=== PATIENT | female | born 1955 ===

== ENCOUNTER 2023-09-17 05:06 | Day surgery (SDC) | payer OTHER ==
[2023-09-09 09:02] LABS: URINE APPEARANCE Cloudy; URINE BILIRRUBIN Negative (NEGATIVE); URINE BLOOD Negative; URINE COLOR Yellow; URINE GLUCOSE Negative (NEGATIVE); URINE LEUKOCYTE Moderate; URINE NITRATE Negative; URINE PROTEIN Trace (NEGATIVE)
[2023-09-09 09:03] LABS: URINE BACTERIA 4058.3 uL (0.0-1933); URINE EPITHELIAL CELLS 54.4 uL (0.0-38.8); URINE RBC 10.5 uL (0.0-20.8); URINE WBC 79.3 uL (0.0-23.2)
[2023-09-09 09:07] LABS: HEMATOCRIT 45.2 % (36.0-45.00); HEMOGLOBIN 15.2 g/dL (12.0-15.00); MEAN CELL VOLUME 83.9 fL (80.00-100.00); MEAN CORPUSCULAR HEMOGLOBIN 28.3 pg (27.00-32.0); MEAN CORPUSCULAR HGB CONC 33.7 g/dl (32.0-36.0); PLATELET COUNT 200 K/uL (150-450); RED BLOOD COUNT 5.38 M/uL (4.00-6.00)
[2023-09-09 09:31] LABS: INR 1.04; PARTIAL THROMBOPLASTIN TIME 30.7 SECONDS (22.0-34.0); PROTHROMBIN TIME 10.9 SECONDS (9.0-11.5)
[2023-09-09 09:50] LABS: ALBUMIN 3.8 gm/dL (3.4-5.0); BILIRUBIN TOTAL 0.53 mg/dL (0.3-1.2); CALCIUM 9.4 mg/dL (8.5-10.1); CREATININE SERUM 0.88 mg/dL (0.55-1.02); GFR 64.29; GLOBULINA 4.4 G/DL (2.4-3.5); POTASSIUM 4.25 mEq/L (3.5-5.1); TOTAL PROTEIN 8.2 gm/dL (6.4-8.2)
[2023-09-09 09:51] LABS: URINE CRYSTALS MODERATE /HPF
[~2023-09-17 05:06] MED LIST: CALCIO; OPTIMAL D31250 MCG; SYNTHROID75 MCG
[2023-09-17] MEDS ORDERED: CIPROFLOXACIN IN 5 % DEXTROSE 400 MG/200 ML PIGGYBAG IV SCH (08:00)
== END 2023-09-17 11:00 | disposition home or self-care (01) ==
LOC: CIR.AMB 05:06
PROVIDERS: ATTEND Surgery
DX: K80.10 Calculus of gallbladder with chronic cholecystitis without obstruction (principal); E03.9 Hypothyroidism, unspecified